=== PATIENT | male | born 1960 | race Caucasian/White ===

== ENCOUNTER → 2024-02-08 10:26 | Outpatient (BNVA) | payer MEDICARE, SELFPAY | PROVIDERS: PCP Family Medicine; Visit Provider Internal Medicine Cardiovascular Disease | DX: R07.9 Chest pain, unspecified (principal) | CPT/HCPCS: 93005 ==

== ENCOUNTER 2024-03-06 23:19 | Emergency (ER) | payer MEDICARE, SELFPAY ==
[2024-03-06 23:27] VITALS: BP 145/81; PULSE 65; RESP 18; TEMP 36.5; O2SAT 95; BMI 47.0
--- NOTE | 2024-03-07 00:18 | ED_ITS ---
HPI - Extremity Problem General: Chief complaint: Extremity Injury, Upper Stated complaint: Left Index Finger Cut Time Seen by Provider: 03/06/24 23:59 Source: patient Mode of arrival: ambulatory Limitations: no limitations History of Present Illness: Patient is a 63-year-old male who presents the emergency department with an injury to pad of left index finger that occurred around noon today. He rep ortedly caught himself with a drill bit, primary complaint is that he has been unable to stop the bleeding. He is on a blood thinner. Despite direct pressure all day, states he has been bleeding through multiple gauze. No foreign body or contamination. States he would not of came in if he was able to control the bleeding. Tetanus is not up-to-date. MD Complaint: other (Injury to left index finger) Onset (ago): hour(s) Associated symptoms: Deny chest pain, fever(s) or rash Related Data Home Medications Medication Instructions Recorded Confirmed celecoxib 200 mg capsule (Celebrex) 200 mg PO BID 11/25/21 02/08/24 lisinopril 20 2 tab PO DAILY 11/25/21 02/08/24 mg-hydrochlorothiazide 25 mg tablet spironolactone 25 mg tablet 25 mg PO DAILY 11/25/21 02/08/24 Previous Rx's Medication Instructions Recorded albuterol sulfate 90 mcg/actuation 2 puff inhalation QID #6.7 grams 02/08/24 aerosol inhaler (Ventolin HFA) amlodipine 10 mg tablet (Norvasc) 10 mg PO DAILY #90 tabs 02/08/24 apixaban 5 mg tablet (Eliquis) 5 mg PO BID #90 tabs 02/08/24 atorvastatin 40 mg tablet 40 mg PO DAILY #30 tabs 02/08/24 carvedilol 25 mg tablet (Coreg) 25 mg PO BID #180 tabs 02/08/24 clonidine HCl 0.3 mg tablet 0.3 mg PO BID #60 tabs 02/08/24 flecainide 50 mg tablet 50 mg PO Q12H #60 tabs 02/08/24 insulin degludec 100 35 unit SUBCUT DAILY #15 mL 02/08/24 unit-liraglutide 3.6 mg/mL(3 mL) subcutaneous pen (Xultophy 100/3.6) metformin 500 mg tablet,extended 1,000 mg (2 x 500 mg) PO BID #120 02/08/24 release 24 hr tabs omeprazole 40 mg capsule,delayed 40 mg PO DAILY #60 caps 02/10/24 release glimepiride 4 mg tablet 4 mg PO BID #60 tabs 02/14/24 magnesium aspart,citrate,oxide 400 mg PO BID #60 caps 02/14/24 sulfamethoxazole 800 1 tab PO BID 10 days #20 tabs 03/07/24 mg-trimethoprim 160 mg tablet (Bactrim DS) Allergies Allergy/AdvReac Type Severity Reaction Status Date / Time ibuprofen [From Motrin] Allergy Intermediate ALGY-Rash Verified 02/08/24 08:45 diltiazem [From Cardizem] Allergy ALGY-Rash Verified 03/06/24 23:32 Review of Systems General: Reports: 10 or more systems reviewed and unremarkable except in HPI and below Const: Denies: fever(s) or chills Card: Denies: chest pain Resp: Denies: dyspnea GI: Denies: abdominal pain, nausea, vomiting or diarrhea Musc: Denies: extremity pain or joint pain Skin/Breast: Reports: new lesions (Laceration to left index finger, trouble stopping bleeding); Denies: rash, skin pain or skin tenderness Neuro: Denies: headache(s) PFSH ED PFSH: Medical History Diabetes mellitus Atrial fibrillation Hypertension Social History Smoking and tobacco/nicotine status: never used tobacco/nicotine (Tobacco Chew) Physical Exam Const: COMMON NORMALS: no acute distress, average body habitus, patient oriented x3, no limitations, healthy appearing, alert and well nourished HENMT: COMMON NORMALS: normocephalic and atraumatic HEAD & SCALP: normocephalic and atraumatic Neck/C-Spine: COMMON NORMALS: full ROM, no lymphadenopathy, supple and no meningeal signs Resp: COMMON NORMALS: normal respiratory effort, No use of accessory muscles and clear to auscultation bilaterally AUSCULTATION: clear to auscultation bilaterally Cardio: COMMON NORMALS: regular rate and regular rhythm RATE: regular rate RHYTHM: regular rhythm Extremity: COMMON NORMALS: full ROM and capillary refill normal NARRATIVE EXTREMITY EXAM: Neurovascular status intact to the patient's left fingers distally. Neuro: COMMON NORMALS: patient oriented x3 SENSORIUM/ORIENTATION: Yes alert MENINGEAL SIGNS: Yes no meningeal signs Skin: COMMON NORMALS: turgor normal NARRATIVE SKIN EXAM: Superficial laceration to pad of left index finger, is actively bleeding at this time. No foreign body or contamination. GENERAL SKIN EXAM: turgor normal Course Vital Signs: Vital signs: Vital Signs Temperature 97.7 F 03/06/24 23:27 Pulse Rate 65 03/06/24 23:27 Respiratory Rate 18 03/06/24 23:27 Blood Pressure 145/81 03/06/24 23:27 Pulse Oximetry 95 03/06/24 23:27 Oxygen Delivery Me thod Room Air 03/06/24 23:27 MDM - Extremity (Nontraumatic) Medical Decision Making Patient cut his left index finger with a drill bit at around noon on 03/06, bleeding unable to be stopped as he is on blood thinner. Here in the emergency department upon removal of the bandage, this wound was too superficial and small to repair with closure with sutures. We soaked a 2 x 2 and tranexamic acid and applied to wound, and pressure dressed with Coban and another 4 x 4, and this did seem to stop the bleeding. He was monitored for short duration here in the emergency department, his tetanus was updated meanwhile and he was started on antibiotics prophylactically. Symptoms and supplies for redress, however is instructed to keep this bandage on until tomorrow to continue clotting off the bleed. If he continues to have bleeding he is instructed to return, he agrees with this plan and will be discharged home at this time. Discussed patient's case with Dr. Weldon. No radiology studies performed this visit Discharge Plan Discharge Patient Disposition: Home Clinical Impression: Finger laceration Qualifiers: Encounter type: initial encounter Finger: index finger Damage to nail status: without damage Foreign body presence: without foreign body Laterality: left Michael lified Code(s): S61.211A - Laceration without foreign body of left index finger without damage to nail, initial encounter Condition: Stable Prescriptions: New sulfamethoxazole-trimethoprim [Bactrim DS] 800-160 mg tablet 1 tab PO BID 10 Days Qty: 20 0RF No Action celecoxib [Celebrex] 200 mg capsule 200 mg PO BID lisinopril-hydrochlorothiazide 20-25 mg tablet 2 tab PO DAILY spironolactone 25 mg tablet 25 mg PO DAILY Eliquis 5 mg tablet 5 mg PO BID Qty: 90 3RF flecainide 50 mg tablet 50 mg PO Q12H Qty: 60 2RF metformin 500 mg tablet extended release 24 hr 1,000 mg PO BID Qty: 120 2RF amlodipine [Norvasc] 10 mg tablet 10 mg PO DAILY Qty: 90 3RF carvedilol [Coreg] 25 mg tablet 25 mg PO BID Qty: 180 3RF Rx Instructions: must administer with a meal/food clonidine HCl 0.3 mg tablet 0.3 mg PO BID Qty: 60 2RF omeprazole 40 mg capsule,delayed release(DR/EC) 40 mg PO DAILY Qty: 60 0RF atorvastatin 40 mg tablet 40 mg PO DAILY Qty: 30 3RF Xultophy 100/3.6 100 unit-3.6 mg /mL (3 mL) insulin pen 35 unit SUBCUT DAILY Qty: 15 0RF albuterol sulfate [Ventolin HFA] 90 mcg/actuation HFA aerosol inhaler 2 puff inhalation QID Qty: 6.7 0RF glimepiride 4 mg tablet 4 mg PO BID Qty: 60 0RF magnesium aspart,citrate,oxide 400 mg magnesium capsule 400 mg PO BID Qty: 60 0RF Discharge Orders: Discharge ED (Routine); Ordered 03/07/24 Ordered By: Kaveh Mcbride Referrals: Gabe Harding MD [Primary Care Provider] - Patient Instructions: Finger Laceration (ED) Activity Restrictions/Additional Instructions: Keep wound dressed as instructed here in the emergency department today. If you continue to have bleeding uncontrollable at home, return to the emergency department. Take antibiotics as prescribed. Your tetanus was updated today 03/07/2024. Coding Level of Care Code ED [employer] Program[employer] Analyst for [employer]
[2024-03-07] MEDS: tetanus-dipt-pertussis 0.5 mL SDV IM (00:28)
[2024-03-07] MEDS: sulfamethoxazole-trimeth DS 160-800 mg Tablet 1 TAB PO (00:29)
[2024-03-07] MEDS: tranexamic acid 1,000 mg/10mL SDV 1000 MG IRRIGATION (00:29)
[2024-03-07] MEDS: cephALEXin 500 mg Capsule PO (00:35)
[2024-03-07 01:36] VITALS: BP 145/57; PULSE 85; O2SAT 97
== END 2024-03-07 01:38 | disposition home or self-care (01) ==
PROVIDERS: Emergency Provider Physician Assistant; PCP Family Medicine
DX: S61.211A Laceration without foreign body of left index finger without damage to nail, initial encounter (principal); Z79.84 Long term (current) use of oral hypoglycemic drugs; X58.XXXA Exposure to other specified factors, initial encounter; E11.9 Type 2 diabetes mellitus without complications; I10 Essential (primary) hypertension; Z79.01 Long term (current) use of anticoagulants
CPT/HCPCS: 90715; 99283

== ENCOUNTER 2024-12-11 11:55 | Outpatient (CLI) | payer OTHER, SELFPAY | END 2024-12-11 11:56 | disposition home or self-care (01) | LOC: SLEEP 11:57 | PROVIDERS: PCP Family Medicine; Referring Provider Family Medicine; Visit Provider Internal Medicine Pulmonary Disease | DX: G47.33 Obstructive sleep apnea (adult) (pediatric) (principal); G47.36 Sleep related hypoventilation in conditions classified elsewhere | CPT/HCPCS: G0399 ==